=== PATIENT | female | born 1950 | race Caucasian/White ===

== ENCOUNTER 2019-09-30 16:06 | Emergency (ER) | payer MEDICARE, OTHER ==
[2019-09-30 16:37] VITALS: BP 0/0
--- NOTE | 2019-09-30 16:46 | NUR ---
family notified [phone] house sup notified [phone] [facility] called [phone]
--- NOTE | 2019-09-30 16:52 | Emergency Department Note ---
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 Any updates have been documented here. Past Medical History Recent Fever: No Clinical Suspicion of Infectio: No New/Unexplained Change in Ment: No Past Medical History: Hypertension, COPD, Anemia, GERD, Hyperlipedemia Other Medical History: malignant neoplasm of oropharynx esphogagitis gastritis acute kidney failure hypotension Other Surgery: coronary angioplasty implant and graft Social History Smoking Cessation: Never Smoker Alcohol Use: None Any Illegal Drug Use: No Other Last Tetanus: unk Review of Systems ROS Narrative Unable to obtain ROS: Unable to obtain due to, critical patient Review of Systems Review of other systems All other systems reviewed and negative. Physical Exam Related Data Allergies: Coded Allergies: Latex, Natural Rubber (Verified Allergy, Unknown, 09/30/19) amoxicillin (Verified Allergy, Unknown, 09/30/19) castor oil (Verified Allergy, Unknown, 09/30/19) clavulanic acid (Verified Allergy, Unknown, 09/30/19) codeine (Verified Allergy, Unknown, 09/30/19) povidone-iodine (Verified Allergy, Unknown, 09/30/19) soap (Verified Allergy, Unknown, 09/30/19) Triage Vital Signs Vital Signs Date Time Temp Pulse Resp B/P (MAP) Pulse Ox O2 Delivery O2 Flow Rate FiO2 09/30/19 16:11 0 0 0/0 0 09/30/19 16:20 15.0 Vital signs reviewed: Yes Physical Exam CONSTITUTIONAL Constitutional: other (pt brought with Thumper/chest compressions, BVM vent's by EMS. We paused Thumper and pt asystolic, pulseless. I intubated, gave Epi through IO, resumed chest compressions - repeat check shows asystole confirmed in multiple leads, pt pronounced ) HENT HENT: other (pupils fixed & dilated) EYES NECK PULMONARY Pulmonary: other (no respiratory effort) CARDIOVASCULAR Cardiovascular: other (no heart sounds auscultated) GASTROINTESTINAL GENITOURINARY SKIN MUSCULOSKELETAL NEUROLOGICAL Neurological: other (unresponsive) PSYCHOLOGICAL Critical Care Time Subsequent provider I assumed direction of critical care for this patient from another provider of my specialty. Assessment & Plan Reassessment Reassessment Time of 1618 Assessment & Plan Final Impression: (1) Assessment & Plan no return of spontaneous circulation Depart Disposition: Last Vital Signs Date Time Temp Pulse Resp B/P (MAP) Pulse Ox O2 Delivery O2 Flow Rate FiO2 09/30/19 16:37 0 0 0 09/30/19 16:20 15.0 09/30/19 16:11 0/0 MICHELLE NOEL MD September 30, 2019 16:52
--- NOTE | 2019-09-30 17:06 | NUR ---
[facility] called back and stated they are declining due to pt PUI status
--- NOTE | 2019-09-30 17:07 | NUR ---
lindsay mar at [facility] called at [phone] and said we would be called back if they accept case
--- NOTE | 2019-09-30 20:28 | NUR ---
CALLED [facility] AT THIS TIME. SPOKE WITH BOWERS AND BODY WAS RELEASED AT THIS TIME. #[phone].
--- NOTE | 2019-09-30 20:45 | NUR ---
PER TOY ASSEMBLY SUPERVISOR, PT'S DAUGHTER MARIBEL CASTILLO OBTAINED PT'S EARRINGS WHICH WERE PLACED IN A BIOHAZARD SPECIMEN BAG.
--- NOTE | 2019-09-30 20:52 | NUR ---
SPOKE WITH JANE CALLEJAS WITH [facility] AT THIS TIME. ETA 1 - 1/2 HRS.
--- NOTE | 2019-09-30 21:16 | NUR ---
MULTIPLE ATTEMPTS TO NOTIFIY FAMILY PT IS RELEASED FROM [facility]. ALL PHONE CALLS WERE OUT OF SERVICE. WILL CONTINUE TO CONTACT FAMILY.
--- NOTE | 2019-09-30 21:18 | NUR ---
SPOKE WITH PT'S DAUGHTER, MARIBEL TOUSSAINT AT THIS TIME. NOTIFYING PT WAS RELEASED BY [facility] AND TO BE PICKED UP BY [facility] IN 1- 1/2 HOURS.
--- NOTE | 2019-09-30 23:22 | NUR ---
[facility] ARRIVED AT THIS TIME TO TAKE PT TO [facility].
--- NOTE | 2019-09-30 23:45 | NUR ---
PT DEPARTED FROM ER AT THIS TIME.
== END 2019-09-30 23:45 | disposition expired ==
LOC: ER 16:06
DX: I46.9 Cardiac arrest, cause unspecified (principal); I10 Essential (primary) hypertension; E78.5 Hyperlipidemia, unspecified; K21.9 Gastro-esophageal reflux disease without esophagitis; J44.9 Chronic obstructive pulmonary disease, unspecified; D64.9 Anemia, unspecified; Z85.818 Personal history of malignant neoplasm of other sites of lip, oral cavity, and pharynx
CPT/HCPCS: 31500; 92950; 99284